=== PATIENT | female | born 1955 ===

== ENCOUNTER 2023-10-06 11:47 | Outpatient (CLI) | payer MEDICARE, SELFPAY ==
[2023-10-06 12:52] LABS: Abs Immature Grans 0.86 10^3/uL (0.0-0.06); HCT 37.3 % (36.0-46.0); HGB 12.5 g/dL (11.2-15.7); MCH 32.3 pg (27.0-33.0); MCHC 33.5 % (32.0-36.0); MCV 96 fL (80-95); Platelet Count 288 10^3/uL (130-400); RBC 3.87 10^6/uL (3.93-5.22); RDW 12.9 % (11.7-14.6); RDW-SD 45.6 fL; WBC 17.18 10^3/uL (4.4-10.8)
[2023-10-06 13:09] LABS: ALT 48 U/L (14-59); AST 33 U/L (15-37); Albumin 3.7 g/dL (3.4-5.0); Alkaline Phosphatase 72 U/L (46-116); Anion Gap 9.4 mmol/L (3-11); BUN 16 mg/dL (7-18); Bilirubin, Total 0.5 mg/dL (0.2-1.0); CO2 27.6 mmol/L (21.0-32.0); CREATININE 0.8 mg/dL (0.55-1.02); Calcium 9.2 mg/dL (8.5-10.1); Chloride 101 mmol/L (98-107); Estimated GFR 79.71 (mL/min/1.73m2); Glucose 102 mg/dL (74-106); Potassium 3.9 mmol/L (3.5-5.1); Sodium 138 mmol/L (136-145); Total Protein 7.9 g/dL (6.4-8.2)
[2023-10-06 13:21] LABS: Absolute Eosinophil Count 0.17 10^3/uL (0.0-0.7); Absolute Lymphocyte Count 2.92 10^3/uL (1.2-3.4); Absolute Monocyte Count 3.95 10^3/uL (0.1-0.8); Absolute Neutrophil Count 9.45 10^3/uL (1.2-6.7); Atypical Lymphocytes % 1; Bands % 2
[2023-10-06 13:22] LABS: Absolute Basophil Count 0.34 10^3/uL (0.0-0.2); Diff Comment Manual Differential; Metamyelocytes % 2; RBC Morphology Normal
[2023-10-06 22:28] LABS: CEA <0.5 ng/mL (See Note)
== END 2023-10-06 11:48 | disposition home or self-care (01) ==
LOC: LBO 11:48
PROVIDERS: Visit Provider Nurse Practitioner Family
DX: C18.2 Malignant neoplasm of ascending colon (principal)
CPT/HCPCS: 36415; 80053; 82378; 85025